=== PATIENT | male | born 1980 | race Caucasian/White ===

== ENCOUNTER 2016-11-11 19:48 | Emergency (ER) | payer OTHER, BC ==
[~2016-11-11] VITALS: Ht 165.1 cm; Wt 56.4 kg
[~2016-11-11 19:48] MED LIST: ANTIVERT 25MG25 MG PO; NORCO 325 MG-51 TAB PO; ZOFRAN 4MG T4 MG/TAB PO
[2016-11-11 19:53] VITALS: TEMP 98.8
[2016-11-12 02:09] VITALS: BP 134/105; PULSE 88
== END 2016-11-11 23:19 | disposition home or self-care (01) ==
LOC: COL.ER 19:48
DX: S61.412A Laceration without foreign body of left hand, initial encounter (principal); Z23 Encounter for immunization

== ENCOUNTER 2016-11-19 14:02 | Outpatient (RCR) | payer OTHER ==
[2016-11-20] MEDS ORDERED: ULTRAM 50MG TAB50 MG PO (01:54)
[2016-11-20] MEDS ORDERED: PERCOCET 325 MG1 TA2 PO (01:54)
[2016-11-20] MEDS ORDERED: CEPHALEXIN500 M1 PO (01:54)
== END 2017-02-17 ==
LOC: WSOH
DX: Z48.02 Encounter for removal of sutures (principal); S61.412A Laceration without foreign body of left hand, initial encounter; W25.XXXA Contact with sharp glass, initial encounter; Y99.0 Civilian activity done for income or pay

== ENCOUNTER 2016-11-19 23:25 | Emergency (ER) | payer OTHER, BC ==
[~2016-11-19] VITALS: Ht 167.6 cm; Wt 62.7 kg
[2016-11-19 23:30] VITALS: BP 157/110; PULSE 102; TEMP 98.6
[2016-11-20] MEDS ORDERED: PERCOCET 325 MG1 TA2 PO (01:54)
[2016-11-20] MEDS ORDERED: CEPHALEXIN500 M1 PO (01:54)
[2016-11-20] MEDS ORDERED: ULTRAM 50MG TAB50 MG PO (01:54)
== END 2016-11-20 02:26 | disposition home or self-care (01) ==
LOC: COL.ER 23:25
DX: S62.632B Displaced fracture of distal phalanx of right middle finger, initial encounter for open fracture (principal); W23.0XXA Caught, crushed, jammed, or pinched between moving objects, initial encounter; Y92.89 Other specified places as the place of occurrence of the external cause

== ENCOUNTER → 2023-09-29 | Outpatient (CLI) | payer BC ==
[~2023-09-29] MED LIST changes: +ATIVAN 1MG T1 MG/TAB PO; +CEPHALEXIN500 M1 PO; +PERCOCET 325 MG1 TA2 PO; +ULTRAM 50MG TAB50 MG PO
== END ==
LOC: COL.RAD 07:11
DX: M48.02 Spinal stenosis, cervical region (principal); M47.812 Spondylosis without myelopathy or radiculopathy, cervical region; Z98.1 Arthrodesis status